=== PATIENT | female | born 1965 | race Caucasian/White ===

== ENCOUNTER 2018-05-06 17:41 | Emergency (ER) | payer OTHER, SELFPAY ==
[~2018-05-06] VITALS: Ht 147.3 cm; Wt 52.2 kg
[2018-05-06 18:01] VITALS: BP 138/86
[2018-05-06] MEDS ORDERED: FLAGYL 500MG/ 100 ML NS 100 ML IV STA (18:42)
[2018-05-06] MEDS ORDERED: ZOFRAN IV STA (18:42)
[2018-05-06] MEDS ORDERED: CIPRO 200 ML IV STA (18:42)
[2018-05-06] MEDS ORDERED: TORADOL IV STA (18:42)
[2018-05-06] MEDS ORDERED: NS 1000ML 1,000 ML IV STA (18:42)
[2018-05-06] MEDS ORDERED: SUBLIMAZE IV STA (18:42)
[2018-05-06] MEDS ORDERED: ZOFRAN ONE (18:48)
[2018-05-06] MEDS ORDERED: NS 1000ML 1,000 ML ONE (18:49)
[2018-05-06] MEDS ORDERED: TORADOL ONE (18:49)
[2018-05-06 18:50] LABS: BILIRUBIN,URINE NEGATIVE (NEGATIVE); UROBILINOGEN,URINE NORMAL (NEGATIVE)
[2018-05-06] MEDS ORDERED: FLAGYL 500MG/ 100 ML NS 100 ML IV ONE (18:50)
[2018-05-06] MEDS ORDERED: SUBLIMAZE ONE (18:50)
[2018-05-06] MEDS ORDERED: CIPRO 200 ML IV ONE (18:51)
[2018-05-06 18:55] LABS: BASOPHIL % 0.5 % (0.0-0.2); EOSINOPHIL # 0.2 10^3/uL (0.0-0.2); EOSINOPHIL % 1.7 % (0.0-5.0); HEMOGLOBIN 14.4 g/dL (12.0-15.0); LYMPHOCYTES # 2.2 10^3/uL (1.0-4.8); MEAN CELL HGB 31.1 pg (26-34); MEAN CELL HGB CONCENTRATION 34.4 g/dL (33-37); MEAN CORP VOLUME 90.5 fL (78-100); MONOCYTES # 0.7 10^3/uL (0.3-0.8); MONOCYTES % 8.4 % (5.0-12.0); NEUTROPHIL # 5.5 10^3/uL (1.8-7.7); NEUTROPHILS % 64.3 % (41.0-85.0); RED CELL DISTRIBUTION WIDTH 13.3 % (11.5-14.5); WHITE BLOOD CELL 8.6 10^3/uL (4.5-11.0)
[2018-05-06 19:07] LABS: APPEARANCE,URINE CLEAR (CLEAR); UA COLOR STRAW (YELLOW)
[2018-05-06 19:19] LABS: CALCIUM 9.6 mg/dL (8.4-10.5); CARBON DIOXIDE 29.2 mmol/L (20.0-32)
--- NOTE | 2018-05-06 19:45 | DIREP ---
PROCEDURE:CT ABDOMEN/PELVIS W/ CONTRAST COMPARISON:[facility], CT, CT RENAL STONE, 05/04/2013, 01:27 PM. INDICATIONS:LLQ pain TECHNIQUE:Axial images were created through the abdomen and pelvis with non-ionic intravenous contrast material. No oral contrast was administered. Sagittal and coronal reconstructions were performed from source images. FINDINGS: LUNG BASES:Normal. No visible pulmonary or pleural disease. LIVER:Normal. No significant liver lesions are identified. BILIARY:Normal. No visible dilatation or calcification. PANCREAS:Normal. No lesion, fluid collection, ductal dilatation, or atrophy. SPLEEN:Normal. No enlargement or focal lesion. ADRENALS:Normal. No mass or enlargement. URINARY TRACT:Normal. No focal lesions or hydronephrosis. AORTA/VASCULAR:There are aortic atherosclerotic calcifications present. No aneurysm. RETROPERITONEUM:Normal. No mass or adenopathy. BOWEL/MESENTERY:The appendix is visualized and appears normal. There is no intestinal obstruction, free fluid, free air or mesenteric inflammatory changes. Scattered sigmoid diverticuli ABDOMINAL WALL:Normal. No mass or hernia. PELVIC ORGANS:The uterus is surgically absent. No visible mass. BONES:There are degenerative changes of the spine greatest at L5-S1. OTHER:Negative. CONCLUSION:Diverticulosis without CT evidence of acute diverticulitis. Surgical changes, no acute findings, or significant interval change Dictated by: Ankit Dumont MD on 05/06/2018 at 07:41 PM
--- NOTE | 2018-05-06 20:26 | ER.PDOC ---
General Chief Complaint: Abdomen Pain Stated Complaint: ABD PAIN Time seen by MD: 20:19 Source: patient Exam Limitations: no limitations History of Present Illness Initial Comments 53 yo F recently diagnosed with diverticulitis presents to the ER c/o worsening LLQ pain and inability to take her medication/tolerate oral intake. Denies fevers, bloody stools, constipation/diarrhea. Timing/Duration: getting worse Severity/Quality: moderate Radiation: no radiation, LLQ Associated Symptoms: nausea/vomiting Exacerbated by: nothing Relieved By: nothing Allergies: Coded Allergies: No Known Allergies (Unverified , 05/06/18) Vital Signs First Vital Signs Date Time Temp Pulse Resp B/P (MAP) Pulse Ox O2 Delivery O2 Flow Rate FiO2 05/06/18 17:56 97.9 67 18 05/06/18 17:56 96 Room Air 05/06/18 18:01 138/86 (103) Last Vital Signs Date Time Temp Pulse Resp B/P (MAP) Pulse Ox O2 Delivery O2 Flow Rate FiO2 05/06/18 18:01 97.9 67 18 138/86 (103) 96 Room Air Past Medical History Medical History: hypertension, other Surgical History: , hysterectomy LMP (females 10-50): hysterectomy Social History Smoking: greater than 1 pack/day Alcohol Use: none Drug Use: none Reviewed Nursing Reviewed: Vital Signs, Abn. Noted, Nursing Assessment Constitutional: no symptoms reported EENTM: no symptoms reported Respiratory: no symptoms reported Cardiovascular: no symptoms reported Gastrointestinal: see HPI Genitourinary: no symptoms reported Musculoskeletal: no symptoms reported Skin: no symptoms reported Psychiatric/Neurological: no symptoms reported Endocrine: no symptoms reported Hematologic/Lymphatic: no symptoms reported All Other Systems: Reviewed and Negative Physical Exam General Appearance: WD/WN, Mild Distress HEENT: PERRL/EOMI, Normal ENT Inspection, TMs Normal Neck: Non-Tender, Full Range of Motion Respiratory: chest non-tender Cardiovascular: Normal Peripheral Pulses, Regular Rate, Rhythm, No Edema, No Gallop Gastrointestinal: Normal Bowel Sounds, Tenderness (LLQ) Back: Normal Inspection, No CVA Tenderness Extremities: Normal Range of Motion, Non-Tender, Normal Inspection 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, No Motor/Sensory Deficits, Alert, Normal Mood/Affect, Oriented x 3 Skin: Normal Color, Warm/Dry Results/Orders Results/Orders Laboratory Tests Test 05/06/18 18:50 05/06/18 18:51 Urine Collection Type CCMS Urine Color STRAW (YELLOW) Urine Appearance CLEAR (CLEAR) Urine Bilirubin NEGATIVE MG/DL (NEGATIVE) Urine Ketones NEGATIVE (NEGATIVE) Urine Specific [place] 1.005 (1.005-1.035) Urine pH 6 (5.0-6.0) Urine Protein NEGATIVE (NEGATIVE) Urine Urobilinogen NORMAL (NEGATIVE) Urine Nitrate NEGATIVE (NEGATIVE) Urine Leukocyte Esterase NEGATIVE (NEGATIVE) Urine Blood 150 3+ (NEGATIVE) Urine RBC 2-5 RBC/HPF (NONE SEEN) Urine WBC 0-2 WBC/HPF (0-2) Urine Squamous Epithelial Cells RARE #/HPF (FEW) Urine Bacteria NONE SEEN (NONE SEEN) Urine Glucose NORMAL (NEGATIVE) White Blood Count 8.6 10^3/uL (4.5-11.0) Red Blood Count 4.63 10^6/uL (4.00-5.20) Hemoglobin 14.4 g/dL (12.0-15.0) Hematocrit 41.9 % (36.0-46.0) Mean Corpuscular Volume 90.5 fL (78-100) Mean Corpuscular Hemoglobin 31.1 pg (26-34) Mean Corpuscular Hemoglobin Concent 34.4 g/dL (33-37) Red Cell Distribution Width 13.3 % (11.5-14.5) Platelet Count 305 10^3/uL (150-400) Mean Platelet Volume 9.0 fL (7.8-11.0) Neutrophils (%) (Auto) 64.3 % (41.0-85.0) Lymphocytes (%) (Auto) 25.0 % (24.0-44.0) Monocytes (%) (Auto) 8.4 % (5.0-12.0) Neutrophils # (Auto) 5.5 10^3/uL (1.8-7.7) Lymphocytes # (Auto) 2.2 10^3/uL (1.0-4.8) Monocytes # (Auto) 0.7 10^3/uL (0.3-0.8) Absolute Immature Granulocyte (auto 0.01 10^3 u/L (0-2) Eosinophils % 1.7 % (0.0-5.0) Basophils % 0.5 % (0.0-0.2) Basophils # 0.0 10^3/uL (0.0-0.1) Eosinophil Count 0.2 10^3/uL (0.0-0.2) Sodium Level 136 mmol/L (132-145) Potassium Level 3.5 mmol/L (3.6-5.2) Chloride Level 100.0 mmol/L (96-109) Carbon Dioxide Level 29.2 mmol/L (20.0-32) Anion Gap 10.3 Blood Urea Nitrogen 15 mg/dL (7-18) Creatinine 1.06 mg/dL (0.59-1.40) Estimated GFR () 65.9 (>/=60) BUN/Creatinine Ratio 14.0 Glucose Level 98 mg/dL (70-110) Calcium Level 9.6 mg/dL (8.4-10.5) Total Bilirubin 0.4 mg/dL (0.2-1.0) Aspartate Amino Transf (AST/SGOT) 30 U/L (0-35) Alanine Aminotransferase (ALT/SGPT) 25 U/L (12-78) Alkaline Phosphatase 61 U/L (50-136) Total Protein 7.9 g/dL (6.4-8.2) Albumin 3.7 g/dL (3.4-5.0) Globulin 4.2 Lipase 112 U/L (114-286) Percent Immature Gran (Cell Imm) 0.10 % (0.00-0.50) Administered Medications Medications (Trade) Dose Ordered Sig/Oziel Route PRN Reason Start Time Stop Time Status Last Admin Dose Admin Sodium Chloride 1,000 ml @ 0 mls/hr Q0M STAT IV 05/06/18 18:42 05/06/18 18:45 DC 05/06/18 19:16 Ketorolac Tromethamine (Toradol) 30 mg STAT STAT IV 05/06/18 18:42 05/06/18 18:46 DC 05/06/18 19:17 Fentanyl Citrate (Sublimaze) 50 mcg STAT STAT IV 05/06/18 18:42 05/06/18 18:46 DC 05/06/18 19:17 Ondansetron HCl (Zofran) 4 mg STAT STAT IV 05/06/18 18:42 05/06/18 18:46 DC 05/06/18 19:17 Metronidazole 100 ml @ 100 mls/hr STAT STAT IV 05/06/18 18:42 05/06/18 19:41 DC 05/06/18 19:16 [place] [address] DIAGNOSTIC IMAGING REPORT STATUS: Signed PATIENT NAME: JOHN WILLARD MR#: [id number] : 1965 LOCATION: ER ROOM#: BED: SEX: F AGE: 53 SERVICE DATE: 05/06/181740 ORDERING PHYSICIAN: CLAUDIO HARE MD RAD#: [id number] ACCESSION NUMBER(s): [id number] PROCEDURE: CT ABD/PEL WITH IV CONTRAST EXAM DATE: 05/06/18 184 cc: C:\Program Files (x86)\[facility]; AMIRA DUMONT MD; CLAUDIO HARE MD / CC: C:\Program Files (x86)\[facility]; AMIRA DUMONT MD; CLAUDIO HARE MD PROCEDURE:CT ABDOMEN/PELVIS W/ CONTRAST COMPARISON:[facility], CT, CT RENAL STONE, 05/04/2013, 01:27 PM. INDICATIONS:LLQ pain TECHNIQUE:Axial images were created through the abdomen and pelvis with non-ionic intravenous contrast material. No oral contrast was administered. Sagittal and coronal reconstructions were performed from source images. FINDINGS: LUNG BASES:Normal. No visible pulmonary or pleural disease. LIVER:Normal. No significant liver lesions are identified. BILIARY:Normal. No visible dilatation or calcification. PANCREAS:Normal. No lesion, fluid collection, ductal dilatation, or atrophy. SPLEEN:Normal. No enlargement or focal lesion. ADRENALS:Normal. No mass or enlargement. URINARY TRACT:Normal. No focal lesions or hydronephrosis. AORTA/VASCULAR:There are aortic atherosclerotic calcifications present. No aneurysm. RETROPERITONEUM:Normal. No mass or adenopathy. BOWEL/MESENTERY:The appendix is visualized and appears normal. There is no intestinal obstruction, free fluid, free air or mesenteric inflammatory changes. Scattered sigmoid diverticuli ABDOMINAL WALL:Normal. No mass or hernia. PELVIC ORGANS:The uterus is surgically absent. No visible mass. BONES:There are degenerative changes of the spine greatest at L5-S1. OTHER:Negative. CONCLUSION:Diverticulosis without CT evidence of acute diverticulitis. Surgical changes, no acute findings, or significant interval change Dictated by: Amira Dumont MD on 05/06/2018 at 07:41 PM Course Vitals & review Data Vital Sign - Last 24 Hours 05/06/18 05/06/18 05/06/18 17:56 17:56 18:01 Temp 97.9 97.9 97.9 Pulse 67 67 67 Resp 18 18 18 B/P (MAP) 138/86 (103) Pulse Ox 96 96 O2 Delivery Room Air Room Air Laboratory Tests Test 05/06/18 18:50 05/06/18 18:51 Urine Collection Type CCMS Urine Color STRAW Urine Appearance CLEAR Urine Bilirubin NEGATIVE MG/DL Urine Ketones NEGATIVE Urine Specific [place] 1.005 Urine pH 6 Urine Protein NEGATIVE Urine Urobilinogen NORMAL Urine Nitrate NEGATIVE Urine Leukocyte Esterase NEGATIVE Urine Blood 150 3+ Urine RBC 2-5 RBC/HPF Urine WBC 0-2 WBC/HPF Urine Squamous Epithelial Cells RARE #/HPF Urine Bacteria NONE SEEN Urine Glucose NORMAL White Blood Count 8.6 10^3/uL Red Blood Count 4.63 10^6/uL Hemoglobin 14.4 g/dL Hematocrit 41.9 % Mean Corpuscular Volume 90.5 fL Mean Corpuscular Hemoglobin 31.1 pg Mean Corpuscular Hemoglobin Concent 34.4 g/dL Red Cell Distribution Width 13.3 % Platelet Count 305 10^3/uL Mean Platelet Volume 9.0 fL Neutrophils (%) (Auto) 64.3 % Lymphocytes (%) (Auto) 25.0 % Monocytes (%) (Auto) 8.4 % Neutrophils # (Auto) 5.5 10^3/uL Lymphocytes # (Auto) 2.2 10^3/uL Monocytes # (Auto) 0.7 10^3/uL Absolute Immature Granulocyte (auto 0.01 10^3 u/L Eosinophils % 1.7 % Basophils % 0.5 % Basophils # 0.0 10^3/uL Eosinophil Count 0.2 10^3/uL Sodium Level 136 mmol/L Potassium Level 3.5 mmol/L Chloride Level 100.0 mmol/L Carbon Dioxide Level 29.2 mmol/L Anion Gap 10.3 Blood Urea Nitrogen 15 mg/dL Creatinine 1.06 mg/dL Estimated GFR () 65.9 BUN/Creatinine Ratio 14.0 Glucose Level 98 mg/dL Calcium Level 9.6 mg/dL Total Bilirubin 0.4 mg/dL Aspartate Amino Transf (AST/SGOT) 30 U/L Alanine Aminotransferase (ALT/SGPT) 25 U/L Alkaline Phosphatase 61 U/L Total Protein 7.9 g/dL Albumin 3.7 g/dL Globulin 4.2 Lipase 112 U/L Percent Immature Gran (Cell Imm) 0.10 % Departure Time of Disposition: 23:58 Disposition: 01 HOME, SELF-CARE Impression: Primary Impression: Abdominal pain Condition: Stable Patient Instructions: Abdominal Pain Referrals: CHRIS MORA PA-C (PCP) PRIMARY CARE PROVIDER Additional Instructions: Your CT did not show any significant abnormal findings. Continue taking your antibiotics as previously prescribed. Take pain and nausea medications as needed. Follow up with your primary care physician to be re-evaluated in 2-3 days. Return for worsening pain, fevers, bloody stools or any other concern that you may be having a medical emergency. Duration or Time Spent with Pa: 60 CLAUDIO HARE MD May 06, 2018 20:26
[2018-05-06 20:56] VITALS: BP 138/86
== END 2018-05-06 20:55 | disposition home or self-care (01) ==
LOC: ER 17:41
DX: R10.32 Left lower quadrant pain (principal); R11.2 Nausea with vomiting, unspecified; I10 Essential (primary) hypertension; F17.210 Nicotine dependence, cigarettes, uncomplicated; Z90.710 Acquired absence of both cervix and uterus
CPT/HCPCS: 36415; 74177; 80053; 81000; 83690; 85025; 96365; 96375; 99285; J0744; J1885; J2405; J3010; J3490; J7030; Q9965